=== PATIENT | male | born 1955 | race Caucasian/White ===

== ENCOUNTER 2016-07-23 21:53 | Emergency (ER) | payer OTHER ==
[~2016-07-23] VITALS: Ht 182.9 cm; Wt 95.5 kg
[2016-07-23] MEDS ORDERED: XANAX0.5 MG PO (22:52)
[2016-07-23 23:34] VITALS: BP 126/81
== END 2016-07-23 23:46 | disposition home or self-care (01) ==
LOC: EME 21:53
DX: F41.1 Generalized anxiety disorder (principal); F17.200 Nicotine dependence, unspecified, uncomplicated
CPT/HCPCS: 99281; 99284